=== PATIENT | male | born 1965 | race Hispanic/Latino ===

== ENCOUNTER 2019-03-08 13:17 | Inpatient (IN) | payer BC ==
[2019-03-08] VITALS (21 sets, daily range): BP systolic 118–142; BP diastolic 70–89
[~2019-03-08] VITALS: Ht 162.6 cm; Wt 78.4 kg
[2019-03-08] MEDS ORDERED: FAMOTIDINE/PF 20 MG/2 ML VIAL IV ONE (13:38)
[2019-03-08 13:59] LABS: BASOPHILS % (AUTO) 0.6 % (0.0-5.0); HEMATOCRIT 44.6 % (42-54); LYMPHOCYTES % (AUTO) 5.1 % (21.0-51.0); MEAN CORPUSCULAR HEMOGLOBIN 31.4 pg (27.0-33.0); MEAN CORPUSCULAR HGB CONC 34.9 g/dL (32.0-36.0); MEAN CORPUSCULAR VOLUME 90.1 fL (79-99); MONOCYTES % (AUTO) 5.5 % (3.0-13.0); NEUTROPHILS % (AUTO) 88.8 % (40.0-77.0); PLATELET COUNT (AUTO) 216 K/uL (130-400); RED BLOOD CELL COUNT(AUTO) 4.95 MIL/uL (4.50-6.20); RED CELL DISTRIBUTION WIDTH 12.4 % (11.0-15.5); WHITE BLOOD COUNT (AUTO) 15.9 K/uL (4.8-10.8)
[2019-03-08 14:07] LABS: POTASSIUM 3.4 mmol/L (3.5-5.1)
[2019-03-08 14:12] LABS: ALBUMIN 4.4 g/dL (3.5-5.0); BILIRUBIN,TOTAL 0.5 mg/dL (0.2-1.0); TOTAL PROTEIN, SERUM 8.2 g/dL (6.0-8.3)
[2019-03-08 14:29] LABS: APPEARANCE,URINE Clear (CLEAR); BILIRUBIN,URINE Negative (NEGATIVE); COLOR,URINE Yellow (YELLOW); GLUCOSE, URINE (UA) Negative (NEGATIVE); KETONES,URINE Trace mg/dL (NEGATIVE); LEUKOCYTE ESTERASE ,URINE Negative (NEGATIVE); NITRATE,URINE Negative (NEGATIVE); OCCULT BLOOD,URINE Negative (NEGATIVE); PH,URINE 6.5 (5.0-8.0); PROTEIN,URINE Negative (NEGATIVE)
[2019-03-08] MEDS ORDERED: KETOROLAC TROMETHAMINE 15MG/ML ONE (14:42)
[2019-03-08] MEDS ORDERED: ONDANSETRON HCL 4 MG/2 ML VIAL ONE ×2 (14:42→19:14)
[2019-03-08] MEDS ORDERED: IOHEXOL-350 75 ML VIAL IV ONE (15:05)
[2019-03-08] MEDS ORDERED: LEVOFLOXACIN 500 MG TABLET ONE (15:49)
[2019-03-08] MEDS ORDERED: METRONIDAZOLE 500MG/100ML BAG 100 ML ONE (15:50)
[2019-03-08] MEDS: LACTATED RINGERS 1000ML 1,000 ML IV SCH ×2 (17:06→19:27)
[2019-03-08] MEDS ORDERED: PROPOFOL 10 MG/ML 20ML VIAL IV ONE (17:13)
[2019-03-08] MEDS ORDERED: LIDOCAINE PF 2% 5ML ABBOJECT ONE (17:13)
[2019-03-08] MEDS ORDERED: ROCURONIUM 10MG/1ML SYR 10 MG/ML ML ONE (17:13)
[2019-03-08] MEDS ORDERED: SUCCINYLCHOLINE 200MG/10ML SYR ONE (17:13)
[2019-03-08] MEDS ORDERED: FENTANYL CITRATE PF 50 MCG/1 ML 2ML VIAL ONE (17:14)
[2019-03-08] MEDS ORDERED: ACETAMINOPHEN 325 MG TAB PO PRN (17:15)
[2019-03-08] MEDS ORDERED: HYDRALAZINE HCL 20 MG/ML VIAL IV PRN (17:15)
[2019-03-08] MEDS ORDERED: ONDANSETRON HCL 4 MG/2 ML VIAL IV PRN (17:15)
[2019-03-08] MEDS ORDERED: MORPHINE SULFATE 2 MG/ML 1ML SYG IV PRN (17:15)
[2019-03-08] MEDS ORDERED: MORPHINE SULFATE 4 MG/1ML SYG IV PRN (17:15)
[2019-03-08] MEDS ORDERED: ZOSYN 3.375GM+NS 50ML 50 ML IV ONE (17:45)
[2019-03-08] MEDS ORDERED: BUPIVACAINE/PF 0.25% 30ML VIAL IJ ONE (18:31)
[2019-03-08] MEDS ORDERED: EPHEDRINE SULFATE 50 MG/ML AMPULE ONE (18:38)
[2019-03-08] MEDS ORDERED: GLYCOPYRROLATE 1 MG/5 ML SYRINGE ONE (19:07)
[2019-03-08] MEDS ORDERED: NEOSTIGMINE 5MG/5ML SYR IV ONE (19:07)
[2019-03-08] MEDS ORDERED: KETOROLAC TROMETHAMINE 30MG/ML ONE (19:18)
[2019-03-08] MEDS ORDERED: MEPERIDINE-PF 25 MG/ML SYG ONE ×2 (19:39→19:49)
--- NOTE | 2019-03-08 20:40 | NUR ---
Admission note: Admitted to floor via stretcher. Slight awake and responsive due to anesthesia. Placed in bed comfortably. Head to Toe Assessment done. VS checked and recorded. Incision sites - clean, dry and intact. was with the patient. Oriented to room and used of call light. Policies and procedures explained. Plan of care initiated. Observed for any unusual changes. Needs attended and cared for. Distress / discomfort not noted.
[2019-03-08] MEDS ORDERED: ZOSYN 3.375GM+NS 50ML 50 ML IV SCH (21:00)
[2019-03-08] MEDS ORDERED: TRAMADOL HCL 50 MG TABLET PO PRN ×2 (21:45)
[2019-03-08] MEDS: FAMOTIDINE/PF 20 MG/2 ML VIAL IV SCH (21:57)
[2019-03-09 00:25] VITALS: BP 121/74
[2019-03-09 01:25] VITALS: BP 121/72
[2019-03-09 04:00] VITALS: BP 119/74
[2019-03-09] MEDS: LACTATED RINGERS 1000ML 1,000 ML IV SCH (04:35)
[2019-03-09 07:00] VITALS: BP 113/68
[2019-03-09 07:28] LABS: BASOPHILS % (AUTO) 0.3 % (0.0-5.0); HEMATOCRIT 41.5 % (42-54); LYMPHOCYTES % (AUTO) 10.6 % (21.0-51.0); MEAN CORPUSCULAR HEMOGLOBIN 30.4 pg (27.0-33.0); MEAN CORPUSCULAR HGB CONC 33.6 g/dL (32.0-36.0); MEAN CORPUSCULAR VOLUME 90.4 fL (79-99); MONOCYTES % (AUTO) 7.6 % (3.0-13.0); NEUTROPHILS % (AUTO) 81.5 % (40.0-77.0); PLATELET COUNT (AUTO) 192 K/uL (130-400); RED BLOOD CELL COUNT(AUTO) 4.59 MIL/uL (4.50-6.20); RED CELL DISTRIBUTION WIDTH 12.2 % (11.0-15.5); WHITE BLOOD COUNT (AUTO) 12.4 K/uL (4.8-10.8)
[2019-03-09] MEDS: FAMOTIDINE/PF 20 MG/2 ML VIAL IV SCH (08:13)
[2019-03-09 11:00] VITALS: BP 117/76
[2019-03-09 16:00] VITALS: BP 121/77
--- NOTE | 2019-03-09 19:32 | NUR ---
PATIENT DISCHARGE PATIENT DISCHARGED, IV DISCONTINUED, CATHLON INTACT, BLEEDING CONTROLLED, PATIENT TOLERATED WITHOUT INCIDENT.
== END 2019-03-09 19:30 | disposition home or self-care (01) | DRG 342 ==
LOC: EDH 13:17 → EDHIP 17:06 → 3AH 20:35
PROVIDERS: ADMIT Internal Medicine; ATTEND Internal Medicine
PROC: 0DTJ4ZZ Resection of Appendix, Percutaneous Endoscopic Approach (ICD-10-PCS; principal; 2019-03-08 18:15)
DX: K35.80 Unspecified acute appendicitis (principal); K56.7 Ileus, unspecified; E86.1 Hypovolemia; K57.30 Diverticulosis of large intestine without perforation or abscess without bleeding; Z88.0 Allergy status to penicillin
CPT/HCPCS: 36415; 74177; 80053; 81003; 83690; 84484; 85025; 88304; 93005; A4344; G0378; J0330; J1885; J2001; J2175; J2405; J2543; J2704; J2710; J3010; J3490; J7030; J7120; Q9967

== ENCOUNTER 2021-01-22 05:28 | Emergency (ER) | payer BC ==
[2021-01-22] MEDS ORDERED: ONDANSETRON HCL 4 MG/2 ML VIAL ONE (05:59)
[2021-01-22] MEDS ORDERED: KETOROLAC TROMETHAMINE 15MG/ML ONE (06:00)
[2021-01-22] MEDS ORDERED: PROCHLORPERAZINE EDISYLATE 10 MG/2 ML VIAL ONE (06:00)
[2021-01-22] MEDS ORDERED: SODIUM CHLORIDE 0.9% 1000ML 1,000 ML IV ONE (06:01)
[2021-01-22 06:14] LABS: BASOPHILS % (AUTO) 0.3 % (0.0-5.0); EOSINOPHILS % (AUTO) 0.7 % (0.0-8.0); HEMATOCRIT 43.1 % (42-54); LYMPHOCYTES % (AUTO) 15.7 % (21.0-51.0); MEAN CORPUSCULAR HGB CONC 33.2 g/dL (32.0-36.0); MEAN CORPUSCULAR VOLUME 90.5 fL (79-99); MONOCYTES % (AUTO) 7.6 % (3.0-13.0); NEUTROPHILS % (AUTO) 75.5 % (40.0-77.0); PLATELET COUNT (AUTO) 229 K/uL (130-400); RED BLOOD CELL COUNT(AUTO) 4.76 MIL/uL (4.50-6.20); RED CELL DISTRIBUTION WIDTH 11.9 % (11.0-15.5); WHITE BLOOD COUNT (AUTO) 10.7 K/uL (4.8-10.8)
[2021-01-22 06:19] LABS: APPEARANCE,URINE Clear (CLEAR); BILIRUBIN,URINE Negative (NEGATIVE); COLOR,URINE Yellow (YELLOW); GLUCOSE, URINE (UA) Negative (NEGATIVE); KETONES,URINE Trace mg/dL (NEGATIVE); LEUKOCYTE ESTERASE ,URINE Negative (NEGATIVE); NITRATE,URINE Negative (NEGATIVE); OCCULT BLOOD,URINE Large (NEGATIVE); PH,URINE 5.5 (5.0-8.0); PROTEIN,URINE Trace mg/dL (NEGATIVE)
[2021-01-22 06:29] LABS: BILIRUBIN,TOTAL 0.4 mg/dL (0.2-1.0); CREATININE 1.1 mg/dL (0.5-1.5); POTASSIUM 3.8 mmol/L (3.5-5.1); TOTAL PROTEIN, SERUM 7.2 g/dL (6.0-8.3)
[2021-01-22] MEDS ORDERED: TAMSULOSIN HCL 0.4 MG CAP.ER.24H ONE (06:50)
[2021-01-22 07:01] LABS: BACTERIA,URINE Few /HPF (None Seen); SQUAMOUS EPITHELIAL CELL,UR 0-2 /HPF (0-2); WBC,URINE 0-1 /HPF (0-1)
== END 2021-01-22 07:42 | disposition home or self-care (01) ==
LOC: EDH 05:28
DX: N20.9 Urinary calculus, unspecified (principal); Z88.0 Allergy status to penicillin; Z90.49 Acquired absence of other specified parts of digestive tract
CPT/HCPCS: 36415; 74176; 80053; 81001; 85025; 96361; 96374; 96375; 99284; J0780; J1885; J2405; J7030